=== PATIENT | female | born 1970 | race Caucasian/White ===

== ENCOUNTER → 2024-01-24 06:44 | Outpatient (REF) | payer OTHER, SELFPAY | LOC: HWWDC 06:44 | PROVIDERS: ATTENDING PHYSICIAN Obstetrics & Gynecology; FAMILY PHYSICIAN Family Medicine | DX: Z12.31 Encounter for screening mammogram for malignant neoplasm of breast (principal) | CPT/HCPCS: 77063; 77067 ==

== ENCOUNTER → 2024-08-12 08:16 | Outpatient (REF) | payer OTHER, SELFPAY | LOC: HWRAD 08:16 | PROVIDERS: ATTENDING PHYSICIAN Family Medicine; REFERRING PHYSICIAN Obstetrics & Gynecology | DX: R10.2 Pelvic and perineal pain (principal) | CPT/HCPCS: 76830; 76856 ==

== ENCOUNTER 2024-08-17 21:28 | Observation (INO) | payer OTHER, SELFPAY ==
[2024-08-17] VITALS (7 sets, daily range): BP systolic 92–125; BP diastolic 65–85; BMI 26.8
--- NOTE | 2024-08-17 12:33 | ED.GENMED ---
History of Present Illness
<Terry Fuentes PA-C - Last Filed: 08/18/24 09:14>
General
Chief Complaint: Abdominal Symptoms
Source: patient
Time Seen by Provider: 08/17/24 12:20
History of Present Illness
History of Present Illness:
54-year-old female with past medical history of hyperlipidemia presenting to the emergency department for evaluation of abdominal pain that is been ongoing for about 2 weeks, initially started on the left side of the abdomen but over the 2 weeks has
gradually become more diffuse lower abdomen and while at urgent care today felt the pain may be a little bit worse on the right lower part of her abdomen. Symptoms initially were accompanied with a sensation of urinary frequency but patient
urinalysis done at urgent care was unremarkable and that her urinary frequency has mostly resolved at this time. She denies any other urinary symptoms including urgency, dysuria or hematuria. Last night patient did experience some bilateral flank
pain and chills but no fevers. Patient also endorsed a little bit of nausea during the 2 weeks but denies this currently. Pain present 3 out of 10. Denies any history of similar. No surgical history. She did have a colonoscopy about 5 years ago
which she believes showed a diverticuli or possible polyp but she cannot remember which. Social history was otherwise noncontributory.
Past History
<Terry Fuentes PA-C - Last Filed: 08/18/24 09:14>
Past History
ED Past Medical History: Other (Kamla's, tricuspid regurg, PVCs)
ED Past Surgical History: Other (Dental)
Social History
Tobacco: Non-smoker
Alcohol: Occasional
Drug: None
Personal:
Living: with family
Review of Systems
<GEOVANNY Jimenes Last Filed: 08/18/24 09:14>
Review of Systems
All Other Systems: ROS reviewed and negative except as documented in HPI and ROS
Phy Exam
<GEOVANNY Jimenes Last Filed: 08/18/24 09:14>
Physical Exam
Physical Exam:
GENERAL: Alert , in no apparent distress
EYE: clear conjunctiva b/l
HEAD: NCAT
ENT: o/p clr, mmm.
CARDIAC: Regular rate and rhythm .
LUNGS: Clear breath sounds bilaterally, no acute respiratory distress, no wheezes/rales/rhonchi
ABDOMEN: Soft, mild LLQ ttp, no r/g, no cvat, negative Ortega sign, no tenderness at McBurney's point
NEUROLOGICAL: Alert and oriented
SKIN: Warm and dry, skin intact.
MUSCULOSKELETAL: well perfused.
PSYCH: Normal and appropriate interaction.
Scores
<Terry Fuentes PA-C - Last Filed: 08/18/24 09:14>
Heart Failure Risk
Heart Failure Risk Score: Not Applicable
Heart Score for Chest Pain Patients
STEMI patient?: Not applicable
Withdrawal Assessment of Alcohol
Withdrawal Assessment Completed?: Not applicable
Course
<GEOVANNY Jimenes Last Filed: 08/18/24 09:14>
Orders/Labs/Results
Orders:
Orders
08/17/24 12:32
CT Abd/pelvis W Iv Cont Urgent
Comment:
Reason For Exam: generalized lower abd pain
08/17/24 12:41
Complete Blood Count/With Diff Urgent
Comprehensive Metabolic Panel Urgent
Lipase Urgent
08/17/24 12:42
Urinalysis Reflex To Culture Urgent
Date Specimen was Collected: 08/17/24
Time Specimen was Collected: 12:41
08/17/24 17:05
diazePAM [Valium Injection] 2.5 mg IV NOW STA
08/17/24 17:33
CefTRIAXone [Rocephin] 2,000 mg IV NOW STA
MetroNIDAZOLE 500 MG/100 ML [Flagyl 500 mg] 100 ml IV NOW
08/17/24 17:35
0.9% Sodium Chloride 1000 ml [Nss] 1,000 ml IV BOLUS
08/17/24 21:05
Admit/Transfer Patient As Directed
Co-Sign Provider:
Level of Care: Observation services
Assign to:: Medical/Surgical
Physician / Group: general surgery/ Tracie
Diagnosis: acute appendicitis
08/17/24 21:06
PRN Pain Medication Management As Directed
May give lesser potent ordered pain med per pt: Yes
preference::
Protocol:: Medication orders for pain may be administered in a
manner that supports deferring to patient preference
when the pt is:
- Requesting an ordered lesser potent pain medication.
Least to most potent pain medications are defined
as: acetaminophen < NSAID < tramadol < opioids
(morphine, oxycodone, hydromorphone).
- Requesting a lesser dose of the same medication IF
ORDERED.
- Requesting a less intrusive route of administration
if both routes are prescribed by the provider (PO <
IV).
08/17/24 21:09
Code Status As Directed
Resuscitation Status: Full Code
08/17/24 21:50
0.9% Sodium Chloride 1000 ml [Nss] 1,000 ml IV 60 mls/hr
08/17/24 21:50
Activity As Directed
Activity Level: Out of Bed-Early Mobility
Anti-embolism (JEFF) Hose As Directed
Type: Thigh high
Intake/ Output As Directed
Frequency: Per unit guidelines
Pneumatic Compression Sleeves As Directed
Type: Thigh high
Vital Signs As Directed
Frequency: Per unit guidelines
DX Deep Vein Thrombosis Video Routine
08/18/24 Breakfast
NPO
Allow oral meds: No
Allow clear liquids: No
Abnormal Lab Results
08/17/24
12:41
Absolute Neuts (auto) 7.4 H 10^3/uL
(1.4-6.5)
Absolute Monos (auto) 0.9 H 10^3/uL
(0.1-0.6)
Lymphocytes % 19.5 L %
(20.5-51.1)
08/17/24 12:41
08/17/24 12:41
Vital Signs
Initial and Last Documented VS:
Initial Vital Signs
Temp Pulse Resp BP Pulse Ox
98.2 F 88 18 125/85 100
08/17/24 11:58 08/17/24 11:58 08/17/24 11:58 08/17/24 11:58 08/17/24 11:58
Last Documented Vital Signs
Temp Pulse Resp BP Pulse Ox
97.8 F 77 16 110/73 97
08/18/24 07:00 08/18/24 07:00 08/18/24 07:00 08/18/24 07:00 08/18/24 07:00
<Messi Willard PA-C - Last Filed: 08/17/24 22:57>
Orders/Labs/Results
Orders:
Orders
08/17/24 12:32
CT Abd/pelvis W Iv Cont Urgent
Comment:
Reason For Exam: generalized lower abd pain
08/17/24 12:41
Complete Blood Count/With Diff Urgent
Comprehensive Metabolic Panel Urgent
Lipase Urgent
08/17/24 12:42
Urinalysis Reflex To Culture Urgent
Date Specimen was Collected: 08/17/24
Time Specimen was Collected: 12:41
08/17/24 17:05
diazePAM [Valium Injection] 2.5 mg IV NOW STA
08/17/24 17:33
CefTRIAXone [Rocephin] 2,000 mg IV NOW STA
MetroNIDAZOLE 500 MG/100 ML [Flagyl 500 mg] 100 ml IV NOW
08/17/24 17:35
0.9% Sodium Chloride 1000 ml [Nss] 1,000 ml IV BOLUS
08/17/24 21:05
Admit/Transfer Patient As Directed
Co-Sign Provider:
Level of Care: Observation services
Assign to:: Medical/Surgical
Physician / Group: general surgery/ Tracie
Diagnosis: acute appendicitis
08/17/24 21:06
PRN Pain Medication Management As Directed
May give lesser potent ordered pain med per pt: Yes
preference::
Protocol:: Medication orders for pain may be administered in a
manner that supports deferring to patient preference
when the pt is:
- Requesting an ordered lesser potent pain medication.
Least to most potent pain medications are defined
as: acetaminophen < NSAID < tramadol < opioids
(morphine, oxycodone, hydromorphone).
- Requesting a lesser dose of the same medication IF
ORDERED.
- Requesting a less intrusive route of administration
if both routes are prescribed by the provider (PO <
IV).
08/17/24 21:09
Code Status As Directed
Resuscitation Status: Full Code
08/17/24 21:50
0.9% Sodium Chloride 1000 ml [Nss] 1,000 ml IV 60 mls/hr
08/17/24 21:50
Activity As Directed
Activity Level: Out of Bed-Early Mobility
Anti-embolism (JEFF) Hose As Directed
Type: Thigh high
Intake/ Output As Directed
Frequency: Per unit guidelines
Pneumatic Compression Sleeves As Directed
Type: Thigh high
Vital Signs As Directed
Frequency: Per unit guidelines
DX Deep Vein Thrombosis Video Routine
08/18/24 Breakfast
NPO
Allow oral meds: No
Allow clear liquids: No
Abnormal Lab Results
08/17/24
12:41
Absolute Neuts (auto) 7.4 H 10^3/uL
(1.4-6.5)
Absolute Monos (auto) 0.9 H 10^3/uL
(0.1-0.6)
Lymphocytes % 19.5 L %
(20.5-51.1)
08/17/24 12:41
08/17/24 12:41
Vital Signs
Initial and Last Documented VS:
Initial Vital Signs
Temp Pulse Resp BP Pulse Ox
98.2 F 88 18 125/85 100
08/17/24 11:58 08/17/24 11:58 08/17/24 11:58 08/17/24 11:58 08/17/24 11:58
Last Documented Vital Signs
Temp Pulse Resp BP Pulse Ox
97.8 F 77 16 110/73 97
08/18/24 07:00 08/18/24 07:00 08/18/24 07:00 08/18/24 07:00 08/18/24 07:00
<Terry Fuentes PA-C - Last Filed: 08/18/24 09:14>
MDM/Problems Addressed
Differential Diagnosis Includes:
Diverticulitis, colitis, appendicitis, pancreatitis, less suspicious for acute cholecystitis, less concern for urinary tract infection or other genitourinary complication
MDM/Problems Addressed:
54-year-old female presenting to the ER for evaluation of generalized lower abdominal pain that has been ongoing for 2 weeks, advised by urgent care to come to the ER for further evaluation. Exam does reveal tenderness along the left lower part of
the abdomen. Clinically I suspect diverticulitis or other GI pathology to be most likely diagnosis. Labs, CT and urine ordered. Patient declining anything for symptoms. Reassessment following.
<Terry Fuentes PA-C - Last Filed: 08/18/24 09:14>
*Pulse Oximetry
Patient hypoxic: no
Data Reviewed
Review of Other/Old Records Reveals: Labs, Records and Radiology Studies
<Messi Willard PA-C - Last Filed: 08/17/24 22:57>
*Critical Care Note
Total Time (30-74mins, 75-104mins- exclusive of procedures): Not Applicable
<Messi Willard PA-C - Last Filed: 08/17/24 22:57>
Update Note
Update Note:
Assumed care of patient from Marlon Fuentes PA-C. Imaging reveals acute appendicitis. Admitted to the surgical service for further management
ED Attending Note
<Terry Fuentes PA-C - Last Filed: 08/18/24 09:14>
-
Portions of this chart may have been created with voice recognition software.� Occasional wrong word or��sound alike� substitutions may have occurred due to the inherent limitations of voice recognition software.
Discharge Plan
Departure
Patient Disposition: Admit
Date of Disposition: 08/17/24
Time of Disposition: 17:45
Admit to: Med/Surg
Presentation/result/management discussed w/ accepting MD/DO: General Surgery
Discharge Problem:
Acute appendicitis
Interventions
Interventions:
*Risk Screen - Suicide Last Done: 08/17/24 11:58
*General Assessment Last Done: 08/17/24 11:58
*Neglect/Abuse Screening Last Done: 08/17/24 11:58
ED- Fall Risk Assessment Last Done: 08/17/24 12:28
*ED COVID-19 Vaccine History Last Done: 08/17/24 21:56
*Nursing Disposition Last Done: 08/17/24 21:41
WA-Vvypsa-Phvnwfyltw Assessment Last Done: 08/17/24 12:29
Discharge Date and Time
Discharge Date/Time: 08/17/24 21:41
[2024-08-17 12:51] LABS: % Basophils 0.2 % (0-2); % Eosinophils 0.4 % (0-6); % Immature Granulocytes 0.3 % (0-0.5); % Lymphocytes 19.5 % (20.5-51.1); % Neutrophils 70.6 % (42.2-75.2); Absolute Lymphocytes 2.1 10^3/uL (1.2-3.4); Absolute Monocytes 0.9 10^3/uL (0.1-0.6); Absolute Neutrophils 7.4 10^3/uL (1.4-6.5); Hematocrit 39.1 % (37.0-47.0); Hemoglobin 13.2 g/dL (12.0-16.0); Mean Corp Hgb Conc. 33.8 g/dL (33.0-37.0); Mean Corpuscular Hgb 29.5 pg (27.0-31.0); Mean Corpuscular Volume 87.3 fL (81.0-99.0); Mean Platelet Volume 9.3 fL (7.4-10.4); Nucleated Red Blood Cells % 0 %; Platelet Count 267 10^3/uL (130-400); Red Blood Cell Count 4.48 10^6/uL (4.20-5.40); Red Cell Dist. Width 13.1 % (11.5-14.5); White Blood Cell Count 10.5 10^3/uL (4.8-10.8)
[2024-08-17 12:52] LABS: Urine Albumin Negative (Neg - Trace); Urine Bilirubin Negative (Negative); Urine Character Clear (Clear); Urine Color Yellow; Urine Glucose Negative (Negative); Urine Ketone Negative (Negative); Urine Leukocyte Negative (Negative); Urine Nitrite Negative (Negative); Urine Occult Blood Negative (Negative); Urine Urobilinogen Negative (Neg - 1+)
[2024-08-17 13:15] LABS: ALT (SGPT) 15 U/L (0-35); AST (SGOT) 17 U/L (14-36); Albumin 4.5 g/dl (3.5-5.0); Alkaline Phosphatase 49 U/L (38-126); Blood Urea Nitrogen 10 mg/dl (7-17); Calcium 9.1 mg/dl (8.4-10.2); Carbon Dioxide 29 mmol/L (22-30); Chloride 100 mmol/L (98-107); Estimated Creatinine Clearance 99 ml/min; Glucose 85 mg/dl (70-99); Potassium 3.9 mmol/L (3.5-5.1); Sodium 136 mmol/L (135-145); Total Bilirubin 1.3 mg/dl (0.2-1.3); Total Protein 6.6 g/dl (6.3-8.2); eGFR > 60.00
[2024-08-17 13:32] LABS: Lipase 60 U/L (23-300)
[2024-08-17] MEDS: ROCEPHIN 2000 MG IV (17:45)
[2024-08-17] MEDS: FLAGYL 500 MG 100 IV (17:49)
[2024-08-17] MEDS: NSS 1000 IV ×2 (17:52→22:42)
--- NOTE | 2024-08-17 21:51 | PTCARENOTE ---
[facility] ED on a stretcher with at bedside. Pt walked from stretcher to bed w/o incident. Admission q's asked and full head to toe assessed. Pt oriented to room and call buitrago. Bed locked and in lowest position.
Care ongoing.
[2024-08-17] MEDS: NON-FORMULARY ITEM 1 MG PO (23:30)
--- NOTE | 2024-08-17 23:57 | HPS.HSE ---
Addendum entered and electronically signed by Blas Hodges MD 08/18/24 08:17:
I saw and examined the patient.
The PA's note was reviewed and I agree with the note.
Comment:
Seen recently.
History, vitals, labs, imaging reviewed. Patient seen and examined.
54 yo F with acute nonperforated appendicitis and associated RLQ pain/tenderness. Recommended laparoscopic appendectomy. Risks/benefits discussed. Risks covered include but not limited to bleeding, infection, ureteral injury, bowel or solid organ
injury, stapleline leak, and anesthetic risks. She agrees to proceed.
Original Note:
Family Physician
-
Family Physician: Blas Salamanca
Chief Complaint
-
abdominal pain
History of Present Illness
This is a very pleasant 54 year old female who comes to ED with her with c/o increasing abdominal pain over past few weeks with intermittent nausea, urinary frequency, and bilateral flank pain with chills. She was evaluated at urgent care
with negative urine specimen prior to arrival in ED today. PMH includes diverticulosis, Kamla Thyroiditis. Last colonoscopy was 5 years ago.
Medical History
Past Medical History
Past Medical History: Reports Hypercholesterolemia and Valvular Disease (tricuspid regurgitation)
Past Surgical History: Reports None
Social History
Tobacco: Non-smoker
Alcohol: Occasional
Drug: None
Personal:
Living: With Family
Employment: Employed
Family History
Family History: Hypertension
Allergies / Home Medications
Allergies reflects when Allergies were last updated in [employer].
Home Medications with original date entered in [employer]
Allergy/Medication List:
Allergies
Allergy/AdvReac Type Severity Reaction Status Date / Time
Penicillins Allergy Hives Verified 08/17/24 11:58
Home Medications
progesterone 100 mg PO HS 08/17/24
Review of Systems
-
History Source: Patient and Family
A 12 point ROS was completed and negative except as noted: Yes
Constitutional: Reports No Symptoms
EENT: Reports No Symptoms
Respiratory: Reports No Symptoms
Cardiac: Reports No Symptoms
Abdomen/GI: Reports Abdominal Pain
: Reports No Symptoms
Musculoskeletal: Reports No Symptoms
Skin: Reports No Symptoms
Neurological: Reports No Symptoms
Endocrine: Reports No Symptoms
Hematologic/Lymphatic: Reports No Symptoms
Psych: Reports No Symptoms
Physical Exam
Vital Signs
Vital Signs
Temp Pulse Resp BP Pulse Ox
98.3 F 72 18 104/69 97
08/17/24 23:20 08/17/24 23:20 08/17/24 23:20 08/17/24 23:20 08/17/24 23:20
Physical Exam
General: Well Developed, Well Nourished, No Apparent Distress, Comfortable and Conversant
HEENT: NormoCephalic, Moist mucous membranes, Atraumatic and PERRLA
Respiratory: Clear and Non Labored Respirations
Cardiac: S1/S2 and Regular Rhythm
Breast: Deferred by me
GI: Soft, Normal Bowel Sounds and Tender
Rectal: Deferred by Provider
Genito-urinary: Clear Urine
Musculoskeletal: No Clubbing, No Cyanosis, No Edema and Normal Gait & Station
Skin: Warm and Dry
Neuro: Awake, Alert, AO x 3, No Motor Deficits and Nonfocal/grossly intact
Hematologic/Lymphatic: No Lymphadenopathy
Psych: Calm
Laboratory Results
-
08/17/24 12:41
08/17/24 12:41
Laboratory Results
Total Bilirubin 1.3 mg/dl (0.2-1.3) 08/17/24 12:41
AST 17 U/L (14-36) 08/17/24 12:41
ALT 15 U/L (0-35) 08/17/24 12:41
Alkaline Phosphatase 49 U/L (38-126) 08/17/24 12:41
Lipase 60 U/L (23-300) 08/17/24 12:41
Data Reviewed
-
CT Scan: Report Reviewed by me
Lab Data: Labs Reviewed by me
Old Records: Reviewed
Impression/Plan
-
IMPRESSION: Acute appendicitis
PLAN: This is a very pleasant 54 year old female who comes to ED with her with c/o increasing abdominal pain over past few weeks with intermittent nausea, urinary frequency, and bilateral flank pain with chills. She was evaluated at urgent
care with negative urine specimen prior to arrival in ED today. PMH includes diverticulosis, Kamla Thyroiditis. Last colonoscopy 5 years ago.
* Acute appendicitis: NPO, NS IVF, Zofran for nausea, Morphine IV pain, Metronidazole IV. Rocephin dose given in ED.
*DVT prophylaxis: SCDs TEDS oob
*Disposition: FC. General surgery service.
[2024-08-18] VITALS (9 sets, daily range): BP systolic 97–110; BP diastolic 55–73
[2024-08-18] MEDS: FLAGYL 500 MG 100 IV ×2 (02:32→10:14)
[2024-08-18 09:18] LABS: INR 1.01; PT 13.6 Sec (11.4-14.6)
[2024-08-18 09:19] LABS: APTT 28.8 Sec (23.4-35.0)
--- NOTE | 2024-08-18 10:15 | CM ---
Reviewed the chart notes and spoke with the patient and her spouse at the bedside. The patient anticipates going to the OR today for appendectomy. The patient resides with her spouse in a two story home with two steps to enter. The patient
reports no DME/VN/SNF in the past. The patient confirmed her pharmacy of choice is [facility]. CM continues to be available to patient/family and is monitoring medical plan for needs at discharge.
Plan: Discharge to home when medically stable.
--- NOTE | 2024-08-18 12:53 | W.DS.TRANS ---
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
-
Discharge Instructions:
Discharge Diagnosis/Procedures s/p appendectomy
Diet Regular
Activity No strenuous activity
Additional Activity No lifting over 10lbs (gallon of milk)
Driving Restrictions No driving for 24 hours
Bathing Restrictions OK to Shower
Wound Care Allow glue to naturally fall off. Do not pick at
incisions.
Instructions: Appendectomy - Discharge instructions
Stand-Alone Forms:
Changes to Home Medications: Yes
Discharge Medications:
DC Medications w/original date entered in [employer]
progesterone 100 mg PO HS HORMONE 08/17/24
tramadol 50 mg tablet 50 mg PO Q6H PRN Pain #20 tabs 08/18/24
Home Medication Changes
tramadol 50 mg tablet 50 mg PO Q6H PRN Pain #20 tabs 08/18/24
Pending Results: Yes
Additional Pending Results:
OR pathology
--- NOTE | 2024-08-18 12:54 | W.IMMPOSTOP ---
Addendum entered and electronically signed by Blas Hodges MD 08/18/24 12:58:
Patient's updated in recovery.
Original Note:
Surgical Immed Post Op Note
-
Primary Surgeon: Kaya Hodges MD
Assisting Surgeon: none
Pre-op Diagnosis: acute appendicitis
Post-op Diagnosis: same
Procedure Performed: laparoscopic appendectomy
Anesthesia Type: general plus local
Specimen / Cultures: appendix
Estimated Blood Loss: 10 cc
Complications: no immediate
Operative Findings: inflamed non-perforated appendix
Will send back to floor and discharge.
--- NOTE | 2024-08-18 13:45 | PTCARENOTE ---
Received patient from PACU via bed. Pt AAOX3. Pox: 98% RA. Call buitrago within reach. Family at bedside. Plan of care ongoing.
== END 2024-08-18 16:40 | disposition home or self-care (01) ==
LOC: 2 SOUTH 21:28
PROVIDERS: Physician Assistant; Physician Assistant Medical; ADMITTING PHYSICIAN Surgery; EMERGENCY PHYSICIAN Emergency Medicine; FAMILY PHYSICIAN Family Medicine
DX: K35.80 Unspecified acute appendicitis (principal); E06.3 Autoimmune thyroiditis; R35.0 Frequency of micturition; E78.00 Pure hypercholesterolemia, unspecified; M51.379 Other intervertebral disc degeneration, lumbosacral region without mention of lumbar back pain or lower extremity pain; Z82.49 Family history of ischemic heart disease and other diseases of the circulatory system; Z88.0 Allergy status to penicillin; Z79.890 Hormone replacement therapy
CPT/HCPCS: 44970; 88304; 74177; 80053; 81003; 83690; 85025; 85610; 85730; 86850; 86900; 86901; 96365; 96375; 99284; G0378; Q9967

== ENCOUNTER → 2025-01-24 06:41 | Outpatient (REF) | payer OTHER, SELFPAY | LOC: HWWDC 06:41 | PROVIDERS: ATTENDING PHYSICIAN Obstetrics & Gynecology; FAMILY PHYSICIAN Family Medicine | DX: Z12.31 Encounter for screening mammogram for malignant neoplasm of breast (principal) | CPT/HCPCS: 77063; 77067 ==

== ENCOUNTER 2025-05-07 06:13 | Day surgery (SDC) | payer OTHER, SELFPAY ==
[2025-05-07] VITALS (12 sets, daily range): BP systolic 85–111; BP diastolic 52–81; BMI 27.5
[2025-05-07] MEDS: NORMOSOL-R/PLASMALYTE-A 1000 IV (06:29)
[2025-05-07] MEDS: TYLENOL 1000 MG PO (06:29)
== END 2025-05-07 09:35 | disposition home or self-care (01) ==
LOC: SDS 06:13
PROVIDERS: ATTENDING PHYSICIAN Surgery
DX: D17.24 Benign lipomatous neoplasm of skin and subcutaneous tissue of left leg (principal)
CPT/HCPCS: 27632; 88304

== ENCOUNTER → 2025-05-15 15:00 | Outpatient (REF) | payer OTHER, SELFPAY | LOC: WDC 15:00 | PROVIDERS: ATTENDING PHYSICIAN Family Medicine | DX: R92.2 Inconclusive mammogram (principal) | CPT/HCPCS: 76641 ==